=== PATIENT | male | born 1945 | race Caucasian/White ===

== ENCOUNTER → 2016-08-26 | Outpatient (CLI) | payer OTHER ==
[~2016-08-26] MED LIST: ATIVAN1 MG PO; DULOXETINE HCL60 MG PO; FLOMAX 0.4 MG0.4 MG PO; JANUVIA 100 MG100 MG PO; LANTUS100 UNIT/1 SQ; LASIX20 MG PO; LIORESAL TAB 1010 MG PO; LIPITOR TAB 2020 MG PO; LISINOPRIL20 MG PO; PLAVIX 75 MG TA75 MG PO; PROAIR HFA8.5 GM INH; RANITIDINE15 MG/1 ML PO; TYLENOL 325MG325 MG PO
[2016-08-26 17:55] LABS: HEMOGLOBIN 13.5 gm/dl (14.0-17.5); WHITE BLOOD COUNT 6.5 K/UL (4.5-11.0)
== END ==
LOC: LAB 17:00
PROVIDERS: Emergency Medicine
DX: I25.10 Atherosclerotic heart disease of native coronary artery without angina pectoris (principal); E11.69 Type 2 diabetes mellitus with other specified complication; E78.2 Mixed hyperlipidemia; I10 Essential (primary) hypertension; K43.9 Ventral hernia without obstruction or gangrene; M51.36 Other intervertebral disc degeneration, lumbar region; M62.81 Muscle weakness (generalized); M79.1 Myalgia; R10.32 Left lower quadrant pain; R53.83 Other fatigue; M79.7 Fibromyalgia
CPT/HCPCS: 36415; 80048; 82150; 83690; 85027

== ENCOUNTER 2016-09-02 18:13 | Observation (INO) | payer OTHER ==
[~2016-09-02] VITALS: Ht 177.8 cm; Wt 99.3 kg
[2016-09-02 19:24] LABS: HEMOGLOBIN 13.6 gm/dl (14.0-17.5); RED BLOOD COUNT 4.97 M/UL (4.20-5.50); WHITE BLOOD COUNT 6.8 K/UL (4.5-11.0)
[2016-09-02] MEDS ORDERED: LIPITOR TAB 2020 MG PO (20:44)
[2016-09-02] MEDS ORDERED: LIORESAL TAB 1010 MG PO (20:44)
[2016-09-02] MEDS ORDERED: DULOXETINE HCL60 MG PO (20:45)
[2016-09-02] MEDS ORDERED: PLAVIX 75 MG TA75 MG PO (20:45)
[2016-09-02] MEDS ORDERED: LASIX20 MG PO (20:46)
[2016-09-02] MEDS ORDERED: JANUVIA 100 MG100 MG PO (20:46)
[2016-09-02] MEDS ORDERED: LANTUS100 UNIT/1 SQ (20:47)
[2016-09-02] MEDS ORDERED: LISINOPRIL20 MG PO (20:48)
[2016-09-02] MEDS ORDERED: ATIVAN1 MG PO (20:48)
[2016-09-02] MEDS ORDERED: PROAIR HFA8.5 GM INH (20:49)
[2016-09-02] MEDS ORDERED: RANITIDINE15 MG/1 ML PO (20:50)
[2016-09-02] MEDS ORDERED: FLOMAX 0.4 MG0.4 MG PO (20:51)
[2016-09-04] MEDS ORDERED: TYLENOL 325MG325 MG PO (09:55)
== END 2016-09-04 11:40 | disposition home or self-care (01) ==
LOC: MED SURG 4 18:13
PROVIDERS: ADMIT Emergency Medicine
DX: R10.32 Left lower quadrant pain (principal); R10.31 Right lower quadrant pain; E11.9 Type 2 diabetes mellitus without complications; I25.10 Atherosclerotic heart disease of native coronary artery without angina pectoris; I10 Essential (primary) hypertension; E78.5 Hyperlipidemia, unspecified; M54.5 Low back pain; G89.29 Other chronic pain; M19.90 Unspecified osteoarthritis, unspecified site; M79.7 Fibromyalgia; M10.9 Gout, unspecified; G47.30 Sleep apnea, unspecified; Z85.828 Personal history of other malignant neoplasm of skin; Z87.891 Personal history of nicotine dependence; Z79.02 Long term (current) use of antithrombotics/antiplatelets; Z79.4 Long term (current) use of insulin; Z79.899 Other long term (current) drug therapy; Z88.0 Allergy status to penicillin
CPT/HCPCS: 36415; 72148; 80053; 81001; 82150; 82962; 83690; 84153; 85025; 87086; 96365; 96366; 96375; 96376; G0378; G0379; J1956

== ENCOUNTER → 2020-10-02 | Outpatient (CLI) | payer OTHER | LOC: EXRD 14:48 | DX: R60.0 Localized edema (principal); M79.661 Pain in right lower leg; M79.662 Pain in left lower leg; M71.21 Synovial cyst of popliteal space [Baker], right knee | CPT/HCPCS: 93970 ==

== ENCOUNTER → 2021-08-14 | Outpatient (CLI) | payer OTHER | LOC: MO 11:21 | DX: Z12.5 Encounter for screening for malignant neoplasm of prostate (principal); C07 Malignant neoplasm of parotid gland; C44.42 Squamous cell carcinoma of skin of scalp and neck; R30.0 Dysuria; N40.0 Benign prostatic hyperplasia without lower urinary tract symptoms | CPT/HCPCS: 81001; 87077; 87086; 87186; G0103 ==